=== PATIENT | female | born 1980 | race Caucasian/White ===

== ENCOUNTER 2017-04-29 09:20 | Observation (INO) | payer OTHER ==
[2017-04-29] MEDS ORDERED: ONDANSETRON 4 MG/2 ML VIAL IVP ONE (09:39)
[2017-04-29] MEDS ORDERED: NS 1,000 ML IV ONE ×2 (09:39→10:02)
[2017-04-29] MEDS ORDERED: fentaNYL 100 MCG/2 ML INJ IVP ONE ×3 (10:02→11:59)
[2017-04-29 10:15] LABS: % IMMATURE GRANULYOCYTES 0.2 % (0.0-1.1); ABSOLUTE IMMATURE GRANULOCYTES 0.02 10^3/uL (0.00-0.10); ADD DIFF? NO; ADD MORPH? NO; ADD SCAN? NO; ATYPICAL LYMPHOCYTE FLAG 0 (0-99); FRAGMENT RBC FLAG 0 (0-99); HEMATOCRIT 40.4 % (38.0-47.0); HEMOGLOBIN 13.1 g/dL (12.6-16.3); LEFT SHIFT FLG 0 (0-99); LIPEMIA HEMOLYSIS FLAG 80 (0-99); MEAN CELL HEMOGLOBIN 27.8 pg (27.9-34.1); MEAN CELL HEMOGLOBIN CONCENTR. 32.4 g/dL (32.4-36.7); MEAN CELL VOLUME 85.6 fL (81.5-99.8); MEAN PLATELET VOLUME 10.1 fL (8.7-11.7); PLATELET CLUMPS FLAG 10 (0-99); PLATELET COUNT 252 10^3/uL (150-400); RED BLOOD CELL COUNT 4.72 10^6/uL (4.18-5.33); RED CELL DISTRIBUTION WIDTH 13.1 % (11.5-15.2)
[2017-04-29] MEDS ORDERED: OXYMETAZOLINE 30 ML NASAL SPRAY ONE (10:17)
--- NOTE | 2017-04-29 10:19 | EDPHY ---
H & P Time Seen by Provider: 04/29/17 09:39 HPI/ROS: HPI Vomiting blood, nosebleed. 36-year-old female by private vehicle. This patient reports that 2 weeks ago she was playing softball down in [place]. She was hit by a fly ball directly in the nose and face. She suffered extensive facial fractures and developed a posterior epistasis. Posterior packing was placed with no effect. She was taken to surgery by ENT at [facility]. She reports that on Sunday she had stitches removed from the area of posterior nasal/pharyngeal bleeding. She reports that she felt nauseous this morning and threw up about 300 cc of blood about a half an hour prior to arrival. Since then she has been coughing up blood and vomiting blood that is dripping down from her posterior pharynx. 1 cup of coffee earlier this morning. No food. ROS: Constitutional: No fever, no chills. No weakness. Anxious. Eyes: No discharge. No changes in vision. ENT: No sore throat. As above. Respiratory: No cough. No shortness of breath. Cardiac: No chest pain, no palpitations. Gastrointestinal: Upper abdominal discomfort associated with vomiting, no vomiting, no diarrhea. Genitourinary: No hematuria. No dysuria or increased frequency with urination. Musculoskeletal: No back pain. No neck pain. No myalgias or arthralgias. Skin: No rashes. Neurological: No headache. No focal weakness or altered sensation. Past medical history: Seizure disorder. On Kera now. As above. ENT is Dr. Sands. Social history: Nonsmoker. Here by herself. No alcohol. Physical Exam: General Appearance: Alert, very anxious. This patient is responding to questions appropriately and in full sentences. This patient appears well- hydrated and well-nourished. Eyes: Pupils equal and round no pallor or injection. No lid edema, erythema or injection. ENT, Mouth: Mucous membranes are moist. Blood in the posterior pharynx. The pharyngeal tissues are unremarkable. No edema or swelling. No asymmetry suggestive of abscess. No erythema or exudates. Blood in both nasal canals. Respiratory: There are no retractions, lungs are clear to auscultation with good air movement bilaterally. Cardiovascular: Regular rate and rhythm. No murmur. Gastrointestinal: Abdomen is soft with vague and mild upper abdominal tenderness on palpation, no masses, bowel sounds normal. No focal tenderness at McBurney's point. No Galo sign. Neurological: Motor sensory function is grossly intact. Cranial nerves are normal. Gait is normal. Skin: Warm and dry, no rashes. Musculoskeletal: Neck is supple and nontender. Extremities are symmetrical. All joints range without pain or impingement. Psychiatric: No agitation. No depression. Database: EKG: Imaging: Procedures: Procedure: Emergency department course: IV placed x2. She was placed on a monitor. Appropriate blood work sent. Vital signs reviewed. She was given 4 mg of IV Zofran and 20 mg of IV Pepcid for nausea and vomiting. She will be given 50 mcg doses of IV fentanyl as needed for pain and anxiety. 10:10 a.m., patient moved to resuscitation room 2. Advanced airway equipment to the bedside. She is very anxious. She was given 0.5 mg of IV Ativan for her anxiety. She is not actively hemorrhaging or vomiting at this time. Repeat neurologic Assessment is nonfocal and unchanged from prior. 11:00 a.m., Dr. Monsivais is at the bedside scoping her. She appears much more comfortable. 11:05 a.m., Dr. Monsivais was not able to thoroughly scope her secondary to her pain. He wants to admit her to the hospitalist service and he will closely follow for further observation and operative management as needed. He is not feel she is a candidate for the operating room at this time. 11:20 a.m., spoke to hospitalist. Patient accepted for admission to the hospitalist service under the care of Dr. Peguero. She is comfortable and relaxed at this time. No active hemorrhage. She is talking on her cell phone. She was admitted to the hospitalist service in stable and improved condition. Differential Diagnosis: The differential diagnosis on this patient includes but is not limited to posterior epistaxis, multiple facial fractures, history of facial surgery and posterior nasal bleeding, hematemesis. This represents a partial list of diagnoses considered. These considerations are based on history, physical exam , past history, reassessment and diagnostic testing. Smoking Status: Light smoker Constitutional: Initial Vital Signs Temperature (C) 36.8 C 04/29/17 09:23 Heart Rate 109 H 04/29/17 09:23 Respiratory Rate 16 04/29/17 09:23 Blood Pressure 120/97 H 04/29/17 09:23 O2 Sat (%) 98 04/29/17 09:23 O2 Delivery Mode Room Air Allergies/Adverse Reactions: No Known Allergies Allergy (Unverified 04/29/17 09:26) Home Medications: Medication Instructions Recorded Cyclobenzaprine [Flexeril 10 MG 10 mg PO BID PRN 04/29/17 (*)] Gentamicin 0.3% [Gentak 0.3% Opht 1 drop DAILY 04/29/17 Drops (RX)] LORazepam [Ativan (*)] 0.5 mg PO Q12 PRN 04/29/17 Naproxen Sodium [Aleve 220 MG (*)] 220 mg PO PRN PRN 04/29/17 Nystatin Susp [Mycostatin Oral 5 ml PO QID 04/29/17 Liquid] Sertraline HCl [Zoloft 100mg (*)] 200 mg PO DAILY 04/29/17 levETIRAcetam [Keppra 500 mg (*)] 750 mg PO BID 04/29/17 oxyCODONE IR [Oxycodone Ir (*)] 5 mg PO Q12 PRN 04/29/17 traZODone [traZODONE 50MG (*)] 25 mg PO HS 04/29/17 Medical Decision Making Critical Care Time: I spent a total of 42 minutes of critical care time in obtaining history, performing a physical exam, bedside monitoring of interventions, collecting and interpreting tests and discussion with consultants but not including time spent performing procedures. - Data Points Laboratory Results: Laboratory Results 04/29/17 09:49 04/29/17 09:49 Medications Given: Discontinued Medications Famotidine (Pepcid) 20 mg IVP EDNOW ONE Stop: 04/29/17 11:17 Last Admin: 04/29/17 11:28 Dose: 20 mg Fentanyl (Sublimaze) 50 mcg IVP EDNOW ONE Stop: 04/29/17 10:03 Last Admin: 04/29/17 10:21 Dose: 50 mcg Fentanyl (Sublimaze) 50 mcg IVP EDNOW ONE Stop: 04/29/17 10:28 Last Admin: 04/29/17 10:28 Dose: 50 mcg Fentanyl (Sublimaze) 50 mcg IVP EDNOW ONE Stop: 04/29/17 12:00 Last Admin: 04/29/17 12:01 Dose: 50 mcg Hydromorphone HCl (Dilaudid) 0.2 mg IVP Q2HRS PRN PRN Reason: Pain, Severe Unable to Take PO Stop: 05/09/17 12:11 Last Admin: 04/29/17 16:06 Dose: 0.2 mg Sodium Chloride (Ns) 1,000 mls @ 0 mls/hr IV ONCE ONE PRN Reason: Wide Open Stop: 04/29/17 09:40 Last Admin: 04/29/17 09:47 Dose: 1,000 mls Sodium Chloride (Ns) 1,000 mls @ 0 mls/hr IV ONCE ONE; Wide Open PRN Reason: Protocol Stop: 04/29/17 10:03 Last Admin: 04/29/17 10:33 Dose: 1,000 mls Lorazepam (Ativan Injection) 0.5 mg IVP EDNOW ONE Stop: 04/29/17 10:47 Last Admin: 04/29/17 10:47 Dose: 0.5 mg Ondansetron HCl (Zofran) 4 mg IVP EDNOW ONE Stop: 04/29/17 09:40 Last Admin: 04/29/17 09:47 Dose: 4 mg Oxymetazoline HCl (Afrin Nasal Chama) 1 sprays EACHNARE EDNOW ONE Stop: 04/29/17 10:23 Last Admin: 04/29/17 10:25 Dose: 1 spray Pantoprazole Sodium (Protonix) 40 mg IVP EDNOW ONE Stop: 04/29/17 11:17 Last Admin: 04/29/17 11:28 Dose: 40 mg Departure - Departure Disposition: [facility] Acute Clinical Impression: Hematemesis, Acute posterior epistaxis, History of facial fracture
[2017-04-29] MEDS ORDERED: OXYMETAZOLINE 30 ML NASAL SPRAY EACHNARE ONE (10:22)
[2017-04-29 10:25] LABS: ANION GAP 11 mEq/L (8-16); CALCIUM 9.5 mg/dL (8.5-10.4); CARBON DIOXIDE 15 mEq/l (22-31); CHLORIDE 115 mEq/L (97-110); CREATININE 0.7 mg/dL (0.6-1.0); GLOMERULAR FILTRATION RATE > 60; GLUCOSE 99 mg/dL (70-100); POTASSIUM 4.5 mEq/L (3.5-5.2); SODIUM 141 mEq/L (134-144)
[2017-04-29] MEDS ORDERED: fentaNYL 100 MCG/2 ML INJ ONE (10:27)
[2017-04-29] MEDS ORDERED: LORazepam 2 MG/ML INJ ONE (10:43)
[2017-04-29 10:44] LABS: INR 1.02 (0.83-1.16); PROTIME(PATIENT) 13.3 SEC (12.0-15.0)
[2017-04-29 10:45] LABS: APTT 26.8 SEC (23.0-38.0)
[2017-04-29] MEDS ORDERED: LORazepam 2 MG/ML INJ IVP ONE (10:46)
[2017-04-29] MEDS ORDERED: PANTOPRAZOLE SODIUM 40 MG VIAL IVP ONE (11:16)
[2017-04-29] MEDS ORDERED: ACETAMINOPHEN 325 MG TAB PO PRN (11:16)
[2017-04-29] MEDS ORDERED: LORazepam 0.5 MG TAB PO PRN ×2 (11:16→12:31)
[2017-04-29] MEDS ORDERED: ONDANSETRON DISINTEGRATING 4 MG TAB PO PRN (11:16)
[2017-04-29] MEDS ORDERED: FAMOTIDINE 20 MG/2 ML SDV IVP ONE (11:16)
[2017-04-29 11:45] LABS: ALBUMIN 3.7 g/dL (3.5-5.0); BILIRUBIN,TOTAL 0.5 mg/dL (0.1-1.4); BILIRUBIN-CONJUGATED 0.3 mg/dL (0.0-0.5); BILIRUBIN-UNCONJUGATED 0.2 mg/dL (0.0-1.1); TOTAL PROTEIN 6.8 g/dL (6.3-8.2)
[2017-04-29] MEDS ORDERED: NAPROXEN SODIUM 220 MG TAB PO PRN (12:31)
[2017-04-29] MEDS ORDERED: oxyCODONE IR 5 MG TAB PO PRN (12:31)
[2017-04-29] MEDS ORDERED: CYCLOBENZAPRINE 10 MG TAB PO PRN (12:31)
[2017-04-29] MEDS: PROMETHAZINE HCL 25 MG/ML INJ IVP PRN ×2 (12:39→19:38)
[2017-04-29] MEDS: LORazepam 2 MG/ML INJ IVP PRN ×2 (12:39→16:50)
[2017-04-29] MEDS: HYDROmorphONE/DILAUDID 1 MG/ML SYR IVP PRN ×4 (12:39→19:38)
[2017-04-29] MEDS ORDERED: OXYMETAZOLINE 30 ML NASAL SPRAY EACHNARE PRN (12:52)
--- NOTE | 2017-04-29 14:06 | GHP ---
[f rep st] HISTORY AND PHYSICAL DATE OF ADMISSION: 04/29/2017 CHIEF COMPLAINT: Nosebleed. HISTORY OF PRESENT ILLNESS: The patient is a 36-year-old female who presented to the emergency room today complaining of nosebleed. She tells me that approximately 2 weeks ago she was hit in the fac e by a softball and suffered extensive facial fractures as well as severe epistaxis. She was treate d at [facility] and required surgical intervention from ENT. She had been doing well in the postoperative setting. On Sunday, 2 days ago, the patient's stitches were removed and she appea red to be doing well, with no subsequent bleeding until this morning. She reports that she felt solomon seous this morning when she woke up and subsequently vomited. She was noted to have approximately 3 00 mL of bloody vomit in the emergency room. She tells me that she feels that there was blood dripp ing down the back of her throat, and that she is very sensitive given her recent fracture and trauma . While in the emergency room, she was consulted on by Dr. Navid Monsivais of ENT. She did not appear to actively be bleeding. He was able to complete a partial scope. She denies any chest pain, shortness of breath or dyspnea. She states that she has been in her norm al health, with no other complaints or complications. PAST MEDICAL HISTORY: Seizure disorder, vascular surgery, history of septic shock with organ failur e, chronic pain. PAST SURGICAL HISTORY: Vascular surgery that the patient is unable at this time to elaborate on, ve ntricular shunt placement and removal. REVIEW OF SYSTEMS: A comprehensive 10-point review of systems is negative, other than noted in the HPI. SOCIAL HISTORY: The patient denies any tobacco use. She denies any alcohol. FAMILY HISTORY: Noncontributory at this time. PHYSICAL EXAMINATION: GENERAL: The patient is alert, very anxious, tearful. HEENT: Pupils equal, round, reactive to light. Mucous membranes are moist. There is notable blood in the posterior pha rynx. RESPIRATORY: Lungs are clear to auscultation bilaterally. No rhonchi or wheezes noted. CAR DIOVASCULAR: Regular rate and rhythm. No gallop or murmur appreciated. GASTROINTESTINAL: Abdomin al bowel sounds are positive, soft and nontender. There is no guarding or rigidity noted. NEUROLOG ICAL: The patient is focally intact. SKIN: Warm and dry. No rashes or lesions appreciated. EXTR EMITIES: Within normal limits. There is no clubbing or cyanosis noted. VITAL SIGNS: Afebrile at 36.8, pulse is 98,respiratory rate 16, blood pressure is 120/97, she is saturating 98% on room air. LABORATORY EVALUATION: Laboratory values are within normal limits. ALLERGIES: None. ASSESSMENT AND PLAN: The patient will be admitted to the medical-surgical floor for observation sta tus and assure that her bleeding has completely subsided. Again, she was consulted on in the emerge ncy room by Dr. Navid Monsivais of ENT. He does not feel that she is a candidate for the operating room at this time as she does not have any operable conditions. He will continue to be control system computer scientist and avai lable should the patient's bleeding redevelop. Will continue her previously prescribed home medicat ions and monitor her condition overnight closely in the hospital. She will be provided antiemetics as well as pain medication. We will continue supportive care for her anxiety as well. I have discussed the patient's care with Dr. Lula Hector in the emergency room. Further ac tion will be taken as needed during the patient's hospitalization. /[id number]/MODL
[2017-04-29] MEDS: OXYMETAZOLINE 30 ML NASAL SPRAY EACHNARE SCH ×2 (15:59→21:51)
[2017-04-29] MEDS: NYSTATIN SUSP 500000 UNIT/5 ML UDCUP PO SCH ×2 (15:59→21:49)
[2017-04-29] MEDS ORDERED: NON-FORMULARY NEW DRUG (Nystatin Susp 5 ML) PO SCH (16:00)
[2017-04-29] MEDS: ONDANSETRON 4 MG/2 ML VIAL IVP PRN (16:45)
[2017-04-29 18:18] LABS: % IMMATURE GRANULYOCYTES 0.3 % (0.0-1.1); ABSOLUTE IMMATURE GRANULOCYTES 0.03 10^3/uL (0.00-0.10); ADD DIFF? NO; ADD MORPH? NO; ADD SCAN? NO; ATYPICAL LYMPHOCYTE FLAG 10 (0-99); FRAGMENT RBC FLAG 0 (0-99); HEMATOCRIT 35.5 % (38.0-47.0); HEMOGLOBIN 11.5 g/dL (12.6-16.3); LEFT SHIFT FLG 0 (0-99); LIPEMIA HEMOLYSIS FLAG 80 (0-99); MEAN CELL HEMOGLOBIN 28.3 pg (27.9-34.1); MEAN CELL HEMOGLOBIN CONCENTR. 32.4 g/dL (32.4-36.7); MEAN CELL VOLUME 87.4 fL (81.5-99.8); PLATELET CLUMPS FLAG 10 (0-99); PLATELET COUNT 213 10^3/uL (150-400); RED BLOOD CELL COUNT 4.06 10^6/uL (4.18-5.33); RED CELL DISTRIBUTION WIDTH 13.2 % (11.5-15.2)
--- NOTE | 2017-04-29 20:07 | GCON ---
[f rep st] CONSULTATION ENT CONSULTATION CHIEF COMPLAINT: Epistaxis. HISTORY OF PRESENT ILLNESS: A 36-year-old female with recurrent epistaxis and a history of facial t rauma with surgical repair approximately 2 weeks ago. The nature of the surgical repair is unknown to the patient, though she knows she had fractures of her face that were repaired in the operating r oom by an ENT in [place]. Attempts are being made to obtain these records and operative reports. Mariia espino presents today to the ER with significant nasal bleeding overnight. She states that she had stitc hes removed in her posterior nasopharynx on this last Sunday. She awoke this morning with an upset stomach and had emesis of bright red and dark blood. At that time, she also had bleeding coming fro m her nose. She is not sure which side. She came to the emergency department and was found to be g enerally stable although in some distress with abdominal pain, and some intermittent epistaxis with blood going down the back of her throat as well. I was brought in on consultation by Dr. Peguero. REVIEW OF SYSTEMS: Negative but for sinonasal and stomach complaints as noted above. PAST MEDICAL HISTORY: Seizure disorder, on Keppra. SOCIAL HISTORY: Nonsmoker. Denies alcohol. PHYSICAL EXAM: VITAL SIGNS: Blood pressure is 129/103, heart rate is 94, respiratory rate 16, satu rations 97% on room air. GENERAL: Alert, interactive, mild distress. HEAD AND FACE: Normocephali c, largely atraumatic but for some mild periorbital ecchymoses bilaterally. Ears: Bilateral pinnae and canals are nontender and nonerythematous, with no evidence of drainage. Eyes: EOMI. Nose: E xternal nose appears normally formed and generally straight. Anterior rhinoscopy shows some dried b lood around the bilateral nasal vestibules. No active bleeding. Anterior rhinoscopy shows normal s eptal and turbinate anatomy with some evidence of posterior crusting. Oral cavity/oropharynx: Age- appropriate dentition. No gingival, buccal or other mucosal masses or lesions. Symmetric palate el evation. No active bleeding or old blood at the posterior pharynx. NECK: Supple without palpable mass or adenopathy. NEURO: Cranial nerves 2-12 are grossly intact. PROCEDURE: After verbal informed consent and placement of Afrin and lidocaine nasal spray in bilate ral nasal cavities, bilateral rigid video nasal endoscopy was performed. Right nostril showed no ev idence of active bleeding. No significant clotting. Some evidence of healing excoriation at the in ferior turbinate and middle meatus. Nasopharynx was clear. The left nasal cavity was unremarkable, without any evidence of bleeding or clots. Two sutures appeared along the mid septum. These appea red to be dissolvable. Septal and turbinate anatomy otherwise unremarkable. INTERVAL ASSESSMENT: A 36-year-old female, 2 weeks status post nasal/facial surgery with intermitte nt epistaxis today. No active bleeding at this point. Recommended continued observation. FINAL ED ASSESSMENT: The patient was visited about 2 hours after initial consultation for concern o f left-sided epistaxis and spitting up of fresh blood. The patient was again scoped with no active bleeding found. Afrin nasal spray was placed. Again, this is a 36-year-old female with intermittent epistaxis following recent nasal and facial breaux rgery. This last episode appeared quite mild. I discussed the case with the ED attending, Dr. David rubin. We agreed that the patient should be observed overnight. I recommended Afrin nasal spray to bi lateral nares 3 times daily. As well, p.r.n. Afrin for active nasal bleeds. Recommend she keep hea d of bed upright or at least above 45 degrees. With active bleeding, she should lean forward so as not to be swallowing blood. Nasal clamp should be applied. We will continue to follow her as an in patient and recommended having Hospitalist call me for any bleeding. I appreciate Hospitalist's car e for pain and GI complaints. Thank you. Should you have any questions, please call my cell phone at [phone]. /[id number]/MODL
[2017-04-29] MEDS ORDERED: traZODone 50 MG TAB PO SCH (21:00)
[2017-04-29] MEDS: levETIRAcetam 500 MG TAB PO SCH (21:49)
[2017-04-30] MEDS: HYDROmorphONE/DILAUDID 1 MG/ML SYR IVP PRN ×5 (00:48→15:10)
[2017-04-30] MEDS: ONDANSETRON 4 MG/2 ML VIAL IVP PRN ×2 (00:48→06:38)
[2017-04-30] MEDS: PROMETHAZINE HCL 25 MG/ML INJ IVP PRN (03:17)
[2017-04-30 05:01] LABS: % IMMATURE GRANULYOCYTES 0.3 % (0.0-1.1); ABSOLUTE IMMATURE GRANULOCYTES 0.02 10^3/uL (0.00-0.10); ADD DIFF? NO; ADD MORPH? NO; ADD SCAN? NO; ATYPICAL LYMPHOCYTE FLAG 10 (0-99); FRAGMENT RBC FLAG 20 (0-99); HEMATOCRIT 36.7 % (38.0-47.0); HEMOGLOBIN 11.7 g/dL (12.6-16.3); LEFT SHIFT FLG 0 (0-99); LIPEMIA HEMOLYSIS FLAG 80 (0-99); MEAN CELL HEMOGLOBIN 28.2 pg (27.9-34.1); MEAN CELL HEMOGLOBIN CONCENTR. 31.9 g/dL (32.4-36.7); MEAN CELL VOLUME 88.4 fL (81.5-99.8); MEAN PLATELET VOLUME 9.7 fL (8.7-11.7); PLATELET CLUMPS FLAG 10 (0-99); PLATELET COUNT 223 10^3/uL (150-400); RED BLOOD CELL COUNT 4.15 10^6/uL (4.18-5.33); RED CELL DISTRIBUTION WIDTH 13.2 % (11.5-15.2)
[2017-04-30] MEDS: NYSTATIN SUSP 500000 UNIT/5 ML UDCUP PO SCH ×3 (06:03→16:35)
--- NOTE | 2017-04-30 07:46 | SOAPPROG ---
SOAP Progress Note Assessment/Plan: Assessment: 36 yo with recurrent epistaxis. Crit dropping. Plan: Recommended OR for exploration of sinonasal cavities and control of epistaxis. Patient agrees. 04/30/17 07:46 Subjective: Another bleed in ER yesterday and another at 0300 last night. Predominantly left. Complaint of GI pain and diarrhea. Objective: Vital Signs Temp Pulse Resp BP Pulse Ox 36.9 C 79 16 117/85 H 95 04/30/17 03:42 04/30/17 03:42 04/30/17 03:42 04/30/17 03:42 04/30/17 03:42 Laboratory Results 04/30/17 04:50 04/29/17 04/30/17 05/01/17 05:59 05:59 05:59 Intake Total 2700 Output Total 1550 Balance 1150 PT 13.3 SEC (12.0-15.0) 04/29/17 09:49 INR 1.02 (0.83-1.16) 04/29/17 09:49 Physical Exam - Physical Exam General Appearance: alert, no apparent distress EENT: PERRL/EOMI, pharynx normal (No posterior pharynx blood.), other (Old bloody crust at nose. No active bleeding.), No purulent nasal drainage Neck: normal inspection Skin: normal color, warm/dry Neuro/Psych: alert, normal mood/affect ICD10 Worksheet Patient Problems: Problems Problem Status Onset Acute posterior epistaxis Acute Hematemesis Acute History of facial fracture Acute
[2017-04-30] MEDS: levETIRAcetam 500 MG TAB PO SCH (08:07)
[2017-04-30] MEDS: OXYMETAZOLINE 30 ML NASAL SPRAY EACHNARE SCH ×2 (08:22→16:34)
[2017-04-30] MEDS ORDERED: LIDO/EPI 1% **Not for Epidural 20 ML MDV ONE ×2 (08:55→11:24)
[2017-04-30] MEDS ORDERED: GENTAMICIN 0.3% 3.5 GM OPHT.OINT EACHEYE SCH (09:00)
[2017-04-30] MEDS ORDERED: SERTRALINE HCL 100 MG TAB PO SCH (09:00)
[2017-04-30] MEDS ORDERED: GENTAMICIN 0.3% OPHT DROPS 5ML EACHEYE SCH (09:00)
[2017-04-30] MEDS ORDERED: MIDAZOLAM 2 MG/2 ML VIAL IVP ONE (11:21)
--- NOTE | 2017-04-30 11:21 | PDANEPAE ---
ANE History of Present Illness 36 yo for control of nasal bleeder ANE Past Medical History - Cardiovascular History Hx Hypertension: No Hx Arrhythmias: No Hx Chest Pain: No Hx Coronary Artery / Peripheral Vascular Disease: No Hx CHF / Valvular Disease: No Hx Palpitations: No - Pulmonary History Hx COPD: No Hx Asthma/Reactive Airway Disease: Yes Hx Recent Upper Respiratory Infection: No Hx Oxygen in Use at Home: No Hx Sleep Apnea: No Sleep Apnea Screening Result - Last Documented: Negative - Neurologic History Hx Cerebrovascular Accident: No Hx Seizures: Yes - Endocrine History Hx Diabetes: No - Renal History Hx Renal Disorders: Yes Renal History Comment: on HD til 2013 ANE Review of Systems Review of systems is: negative - Exercise capacity METS (RN): 4 METS ANE Patient History - Allergies Allergies/Adverse Reactions: ibuprofen Allergy (Severe, Verified 04/30/17 11:17) Anaphylaxis haloperidol [From Haldol] Allergy (Mild, Verified 04/30/17 11:17) latex Allergy (Verified 04/30/17 11:17) Rash Penicillins Allergy (Verified 04/30/17 11:17) Anaphylaxis - Home Medications Home medications: home medication list seen and reviewed Home Medications: Cyclobenzaprine [Flexeril 10 MG (*)] 10 mg PO BID PRN 04/29/17 [Last Taken Unknown] Gentamicin 0.3% [Gentak 0.3% Opht Drops (RX)] 1 drop DAILY 04/29/17 [Last Taken Unknown] LORazepam [Ativan (*)] 0.5 mg PO Q12 PRN 04/29/17 [Last Taken Unknown] Naproxen Sodium [Aleve 220 MG (*)] 220 mg PO PRN PRN 04/29/17 [Last Taken Unknown] Nystatin Susp [Mycostatin Oral Liquid] 5 ml PO QID 04/29/17 [Last Taken Unknown] Sertraline HCl [Zoloft 100mg (*)] 200 mg PO DAILY 04/29/17 [Last Taken Unknown] levETIRAcetam [Keppra 500 mg (*)] 750 mg PO BID 04/29/17 [Last Taken Unknown] oxyCODONE IR [Oxycodone Ir (*)] 5 mg PO Q12 PRN 04/29/17 [Last Taken Unknown] traZODone [traZODONE 50MG (*)] 25 mg PO HS 04/29/17 [Last Taken Unknown] - NPO status NPO Since - Liquids (Date): 04/30/17 NPO Since - Liquids (Time): 00:00 NPO Since - Solids (Date): 04/30/17 NPO Since - Solids (Time): 00:00 - Smoking Hx Smoking Status: Light smoker ANE Labs/Vital Signs - Labs Result Diagrams: 04/30/17 04:50 04/29/17 09:49 - Vital Signs Blood Pressure: 124/91 Heart Rate: 88 Respiratory Rate: 16 O2 Sat (%): 90 Height: 5 ft 9 in Weight: 95.254 kg ANE Physical Exam - Airway Neck exam: FROM Mallampati Score: Class 2 Mouth exam: dentures - Pulmonary Pulmonary: no respiratory distress - Cardiovascular Cardiovascular: regular rate and rhythym - ASA Status ASA Status: II ANE Anesthesia Plan Anesthesia Plan: general endotracheal anesthesia
[2017-04-30] MEDS ORDERED: BUPIVACAINE/EPI 0.25% 30 ML SDV ONE (11:25)
[2017-04-30] MEDS ORDERED: REMIFENTANIL HCL 1 MG VIAL ONE (11:35)
[2017-04-30] MEDS ORDERED: PROPOFOL/EMULSION 500 MG/50 ML BOTTLE IV ONE (11:36)
[2017-04-30] MEDS ORDERED: ONDANSETRON 4 MG/2 ML VIAL ONE (11:36)
[2017-04-30] MEDS ORDERED: ROCURONIUM 50 MG/5 ML VIAL ONE (11:36)
[2017-04-30] MEDS ORDERED: METOCLOPRAMIDE 10 MG/2 ML VIAL ONE (11:36)
[2017-04-30] MEDS ORDERED: DEXAMETHASONE 4 MG/ML VIAL ONE (11:36)
[2017-04-30] MEDS ORDERED: fentaNYL 100 MCG/2 ML INJ ONE ×4 (11:36→14:21)
--- NOTE | 2017-04-30 13:20 | POSTOPPROG ---
Post Op Note Date of Operation: 04/30/17 Surgeon: Navid Monsivais Anesthesiologist: Gabe Anesthesia: GET(General Endotracheal) Pre-op Diagnosis: Left recurrent epistaxis Post-op Diagnosis: Left recurrent epistaxis Indication: Left recurrent epistaxis Procedure: L max antrostomy, L sphenopalatine artery ligation, L post inf turbinectomy Findings: L blood ooze Inf/Abcess present in the surg proc area at time of surgery?: No Depth: Deep Incisional (Fascial) EBL: Minimal Complications: none Specimen(s): none
[2017-04-30] MEDS: fentaNYL 100 MCG/2 ML INJ IVP PRN ×5 (13:26→14:23)
[2017-04-30] MEDS ORDERED: PROMETHAZINE HCL 25 MG/ML INJ IVP PRN (13:31)
[2017-04-30] MEDS ORDERED: NALOXONE HCL 0.4 MG/ML INJ IVP PRN (13:31)
[2017-04-30] MEDS ORDERED: fentaNYL 100 MCG/2 ML INJ IVP PRN (13:31)
--- NOTE | 2017-04-30 13:33 | POSTANESTH ---
Post Anesthetic Evaluation Cardiovascular Status: Normal, Stable Respiratory Status: Normal, Stable Level of Consciousness/Mental Status: Can Participate in Eval Pain Control: Adequate, Prn Tx Ordered Nausea/Vomiting Control: Adequate, Prn Tx Ordered Complications Possibly Related to Anesthesia: None Noted
[2017-04-30] MEDS ORDERED: HYDROmorphONE/DILAUDID 1 MG/ML SYR ONE (13:44)
--- NOTE | 2017-04-30 16:47 | HOSPPROG ---
Hospitalist Progress Note Assessment/Plan: DIAGNOSES: -EPISTAXIS -RECENT FACIAL INJURY W FRACTURES, S/P SURGERY ELSEWHERE PLANS: she is now stable post op but will need further monitoring for any more bleeding , will need to change to inpatient to monitor overnight will repeat Hb SUBJECTIVE: states she feels better, some irritation in nose post op, a few drops of blood so far post op but no major bleeding no sob no fever sxs OBJECTIVE: vitals: stable exam: alert oriented relaxed, talkative skin warm dry resps relaxed lungs clear heart reg no visible bleeding good cap refill repeat Hg 11 ADDENDUM TO ABOVE: we have obtained records from outside hospital where she had her facial surgery. She was there under a different name than the name she uses here, and there were some issues in how she interacted with staff there. We believe the name she has given us here is her correct name. She has so far here had reasonably appropriate interactions with staff, though has said some odd/inappropriate things to them. 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 There was concern about pain med seeking behaviors at other hospital but we have not seen that here so far. Objective: Vital Signs Temp Pulse Resp BP Pulse Ox 37 C 91 14 128/87 H 90 L 04/30/17 15:53 04/30/17 15:53 04/30/17 15:53 04/30/17 15:53 04/30/17 15:53 Laboratory Results 04/30/17 04:50 04/29/17 04/30/17 05/01/17 06:59 06:59 06:59 Intake Total 2700 530 Output Total 1550 50 Balance 1150 480 PT 13.3 SEC (12.0-15.0) 04/29/17 09:49 INR 1.02 (0.83-1.16) 04/29/17 09:49 ICD10 Worksheet Patient Problems: Problems Problem Status Onset Acute posterior epistaxis Acute Hematemesis Acute History of facial fracture Acute
[2017-04-30 16:51] VITALS: BP 110/69; PULSE 85; RESP 18; TEMP 99; O2SAT 91
--- NOTE | 2017-04-30 20:35 | GOP ---
[f rep st] OPERATIVE REPORT DATE OF OPERATION: SURGEON: Navid Monsivais MD ANESTHESIA: General. PREOPERATIVE DIAGNOSIS: Recurrent left epistaxis, status post reconstruction of facial trauma. POSTOPERATIVE DIAGNOSIS: Recurrent left epistaxis, status post reconstruction of facial trauma. PROCEDURE PERFORMED: Left maxillary antrostomy, left sphenopalatine artery ligation, left septal ca uterization. FINDINGS: Right nasal septal ooze at Kiesselbach's plexus. Left inferior turbinate ooze with blood along the nasal floor and middle meatus. SPECIMENS: None. ESTIMATED BLOOD LOSS: 10 mL. INDICATIONS: The patient was 1st seen in the emergency department on 04/29/2017 in consultation for recurrent epistaxis. She had a history of nasal facial reconstruction following facial trauma abou t 2 weeks ago. She came to the ER with facial pain and recurrent bleeding. She was observed overni ght and continued to have witnessed bleeds from the left nasal cavity. These were somewhat short bu t recurrent. Further, she had a drop in her H and H. Given her history and findings, she was deter mined to be an appropriate candidate for the above-stated procedures. The risks, benefits, and alte rnatives to the procedures were explained at length to the patient, who stated she understood and wi shed to go forward with the procedures. DESCRIPTION OF PROCEDURE: The patient was brought to the operating room by Anesthesiology and place d on the operating table. Once appropriate level of anesthesia was achieved, the patient was preppe d and draped in the usual fashion. The nasal septum, middle turbinates and maxillary line were inje cted with 1% lidocaine with 100,000 epinephrine bilaterally. Afrin-soaked pledgets were placed bila terally. The Afrin was given time to take effect, while surgical equipment was prepared. The right nasal cavity was explored 1st with a 0-degree video endoscope. The Afrin-soaked pledgets were removed from that side. There was bloody ooze from Kiesselbach's area. This was mildly cauter ized with Bovie suction electrocautery. This appeared to control the bleeding. The right inferior turbinate was somewhat lateralized with a Baker in order to allow visualization of the rest of the n marcel cavity. There was some mild bleeding from excoriated portion of the right inferior turbinate. This was cauterized as well. Afrin-soaked pledgets were replaced in that nasal cavity. The ones on the left were removed. The 0-degree video endoscope was used to visualize the left nasa l cavity. The posterior and mid inferior turbinates were excoriated but appeared to be healing. No active bleeding from there. There was some mild ooze within the middle meatus. The middle turbina te was lateralized with a Baker in order to create better visualization of middle meatus. Questiona ble ooze from beneath the inferior turbinate posteriorly at the region of the Ifeoma ethmoidalis. A s well, there was some mild old blood visualized emanating from the posterior aspect of the uncinate process. Given the sizable bloody ooze and her history, she was determined to be appropriate for m axillary antrostomy to visualize structures within the maxillary sinus and address possible bleeding that may have been the result of prior facial fractures. As well, maxillary antrostomy will furthe r facilitate sphenopalatine artery ligation. The Baker elevator was used to incise the uncinate pro cess. The uncinectomy was completed with a straight going-through cut. A ball probe was used to pa lpate the maxillary antrum. This was found readily. A combination of backbiter and straight going- through cut was used to widely open the maxillary antrum. There was some mild bloody ooze at fringe s of this and posteriorly in the region of the Ifeoma ethmoidalis. Given difficulty with visualizat ion of the Ifeoma ethmoidalis, the excoriated posterior portion of the left inferior turbinate was r esected. The base of this was cauterized. No significant blood or bleeding from within the maxilla ry sinus. The margins of the antrostomy superiorly and inferiorly and anteriorly were cauterized wi th mild Bovie suction electrocautery. The mucosa medial to the maxillary wall to the Ifeoma ethmoid melly was elevated with a suction Baker elevator. There was diffuse bleeding emanating from this reg ion. The sphenopalatine artery was found and dissected free with a combination of suction Baker and a ball probe. Once the artery was isolated, a Rhinoforce clip production team manager was used to place a single m etallic Ligaclip. There was no further bloody ooze at the site. Keyhole bipolar forceps was then u sed to cauterize the site as well. No evidence of bleeding or ooze at the site following this. After the right nasal pledgets were removed, bilateral nasal cavities were irrigated with copious no rmal saline. Bilateral nasal cavities were reinspected for bleeding. No significant bleeding was s een, yet, there was some continuous mild ooze at the surgical beds. A hemostatic agent was blown in place to bilateral nasal cavities, and this was focused at the sites of surgical intervention. No active bleeding seen following this. The patient tolerated the procedure well, and was extubated in the operating room prior to being transferred in good condition to the postanesthesia care unit. COMPLICATIONS: None. /[id number]/MODL
--- NOTE | 2017-04-30 20:55 | PDDCSUM ---
Discharge Summary Discharge Summary: The patient left AMA without waiting for discharge instructions or other conversation with physician. She appeared stable by assessment of her nurse.
== END 2017-04-30 17:31 | disposition left against medical advice (07) ==
LOC: F3E 12:21
PROVIDERS: ADMIT Internal Medicine; ATTEND Internal Medicine
PROC: 09QX4ZZ Repair Left Sphenoid Sinus, Percutaneous Endoscopic Approach (ICD-10-PCS; principal; 2017-04-29)
PROC: 09CR4ZZ Extirpation of Matter from Left Maxillary Sinus, Percutaneous Endoscopic Approach (ICD-10-PCS; principal; 2017-04-29)
PROC: 3E0337Z Introduction of Electrolytic and Water Balance Substance into Peripheral Vein, Percutaneous Approach (ICD-10-PCS; 2017-04-29)
PROC: 095L4ZZ Destruction of Nasal Turbinate, Percutaneous Endoscopic Approach (ICD-10-PCS; 2017-04-29)
DX: R04.0 Epistaxis (principal); K92.0 Hematemesis; E86.9 Volume depletion, unspecified; S02.92XD Unspecified fracture of facial bones, subsequent encounter for fracture with routine healing; Y93.64 Activity, baseball; W21.03XD Struck by baseball, subsequent encounter; Z98.890 Other specified postprocedural states
CPT/HCPCS: 30130; 31256; 31291; 96361; 96374; 96375; 99291; J1100; J1170; J2060; J2250; J2405; J2550; J2704; J2765; J3010

== ENCOUNTER 2017-05-04 14:51 | Emergency (ER) | payer OTHER ==
[2017-05-04] MEDS ORDERED: OXYMETAZOLINE 30 ML NASAL SPRAY ONE ×2 (15:01→17:12)
[2017-05-04] MEDS ORDERED: OXYMETAZOLINE 30 ML NASAL SPRAY EACHNARE ONE (15:02)
[2017-05-04] MEDS ORDERED: ONDANSETRON 4 MG/2 ML VIAL ONE (15:25)
[2017-05-04] MEDS ORDERED: ONDANSETRON 4 MG/2 ML VIAL IVP ONE ×2 (15:27→16:46)
[2017-05-04] MEDS ORDERED: NS 1,000 ML IV ONE (15:27)
[2017-05-04] MEDS ORDERED: DIAZEPAM 10 MG/2 ML SYR ONE (15:28)
[2017-05-04] MEDS ORDERED: DIAZEPAM 10 MG/2 ML SYR IVP ONE (15:30)
--- NOTE | 2017-05-04 15:31 | EDPHY ---
H & P Time Seen by Provider: 05/04/17 14:57 HPI/ROS: HPI Nosebleed. 36-year-old female by private vehicle with her mother. I took care of this patient approximately 1 5 days ago ago at the [facility] Emergency Department. She had underwent facial surgery for multiple facial fractures that were inflicted from a softball hitting her in the face while playing a softball game. Her ENT physician at [facility] in [place] was a Dr. Sands. She was seen in the emergency department at [facility] myself for spontaneous bleeding from both nasal canals. Dr. Monsivais of the ENT service consulted in the emergency department and help with her management. She was admitted to the hospitalist service and Dr. Monsivais. She was taken to the OR by Dr. Monsivais for cauterized procedures. Please see my note from that date for further details. The patient reports that at approximately 9:30 a.m., she sneezed and started bleeding profusely from the right nasal canal. She reports that this continued since that time. She also complains of abdominal discomfort which was identical to her presentation when I saw her on April 29. She reports that her mother came home came up to her bedroom and she had apparently lost consciousness. She is not sure she had a seizure but there was no urinary incontinence and this usually occurs when she has a seizure. She called the office of Dr. Monsivais after her mother aroused her was told to come to the emergency department. She came to the [facility] because she thought it was closer. Currently she feels anxious. She reports that her bleeding has decreased. She denies any lightheadedness. She tells me that Dr. Monsivais told her he may have to cauterize the right posterior nasal cavity but he did not do this during his initial management on April 29. ROS: Constitutional: No fever, no chills. No weakness. Eyes: No discharge. No changes in vision. ENT: No sore throat. No nasal congestion or rhinorrhea. As above. Respiratory: No cough. No shortness of breath. Cardiac: No chest pain, no palpitations. Gastrointestinal: As above, no diarrhea. Genitourinary: No hematuria. No dysuria or increased frequency with urination. Musculoskeletal: No back pain. No neck pain. No myalgias or arthralgias. Skin: No rashes. Neurological: No headache. No focal weakness or altered sensation. Past medical history: Chronic pain, as above, seizure disorder, history of septic shock and organ failure, vascular surgery which she cannot go into detail with. Social history: Is . Was stain with her mother today. Nonsmoker. Here by herself. Physical Exam: General Appearance: Alert, very anxious and emotionally labile. She has a basin of diluted blood on her lap. This patient is responding to questions appropriately and in full sentences. This patient appears well-hydrated and well-nourished. Eyes: Pupils equal and round no pallor or injection. No lid edema, erythema or injection. ENT, Mouth: Mucous membranes are moist. Blood in the posterior pharynx. The pharyngeal tissues are otherwise unremarkable. No edema or swelling. No asymmetry suggestive of abscess. No erythema or exudates. Bleeding from the posterior aspect of the right nasal canal on initial speculum exam. Moderate. Nonpulsatile. Respiratory: There are no retractions, lungs are clear to auscultation with good air movement bilaterally. Cardiovascular: Regular rate and rhythm. No murmur. Gastrointestinal: Abdomen is soft vague tenderness on palpation throughout, no masses, bowel sounds normal. No focal tenderness at McBurney's point. No Galo sign. Neurological: Motor sensory function is grossly intact. Cranial nerves are normal. Gait is normal. Skin: Warm and dry, no rashes. Musculoskeletal: Neck is supple and nontender. Extremities are symmetrical. All joints range without pain or impingement. Psychiatric: No agitation. No depression. As above. Database: EKG: Imaging: Procedures: Emergency department course: Vital signs reviewed. Tachycardic, tachypneic, hypertensive. Patient placed on a monitor. She was moved from room 7 to room 1. I placed a large cotton pledget soaked in Afrin and topical lidocaine and held pressure. Epistaxis was controlled with this. I was reluctant to place a rhino rocket device secondary to her history of facial fractures. The nursing staff was not able to get sufficient IV access. I placed a temporary 18 gauge catheter in her right internal jugular vein, under sterile conditions and under ultrasound guidance. 3:15 p.m., secondary to anxiety she was given 5 mg of IV Valium. She was also complaining of the same abdominal pain as she had the last time I saw her. I do not feel this surgical in nature. She was given 50 mcg of IV fentanyl for this. 320 p.m., spoke with the ENT physician Dr. Cleveland. She is familiar with this patient. She will see this patient on arrival to the [facility] Emergency Department. 3:25 p.m., spoke with Dr. Prudencio Daniels attending emergency physician at [facility] emergency department. The case was discussed in detail with him. He accepts this patient for transfer and will see this patient on arrival. He will contact ENT, Dr. Cleveland when she arrives. 3:45 p.m., the ambulance has arrived. She is stable. She is relaxed and comfortable. No active nasal hemorrhage at this time. She was transferred to the [facility] Emergency Department in stable condition. Differential Diagnosis: The differential diagnosis on this patient includes but is not limited to posterior verses anterior epistaxis, history of multiple facial fractures and posterior epistaxis recently. This represents a partial list of diagnoses considered. These considerations are based on history, physical exam, past history, reassessment and diagnostic testing. Smoking Status: Light smoker Constitutional: Initial Vital Signs Temperature (C) 37.2 C 05/04/17 15:00 Heart Rate 112 H 05/04/17 15:00 Respiratory Rate 22 H 05/04/17 15:00 Blood Pressure 148/113 H 05/04/17 15:00 O2 Sat (%) 99 05/04/17 15:00 O2 Delivery Mode Oxymizer O2 (L/minute) 10 Allergies/Adverse Reactions: ibuprofen Allergy (Severe, Verified 05/04/17 15:12) Anaphylaxis haloperidol [From Haldol] Allergy (Verified 05/04/17 15:12) latex Allergy (Verified 05/04/17 15:12) Rash Penicillins Allergy (Verified 05/04/17 15:12) Anaphylaxis Home Medications: Medication Instructions Recorded Cyclobenzaprine [Flexeril 10 MG 10 mg PO BID PRN 04/29/17 (*)] Gentamicin 0.3% [Gentak 0.3% Opht 1 drop DAILY 04/29/17 Drops (RX)] LORazepam [Ativan (*)] 0.5 mg PO Q12 PRN 04/29/17 Naproxen Sodium [Aleve 220 MG (*)] 220 mg PO PRN PRN 04/29/17 Nystatin Susp [Mycostatin Oral 5 ml PO QID 04/29/17 Liquid] Sertraline HCl [Zoloft 100mg (*)] 200 mg PO DAILY 04/29/17 levETIRAcetam [Keppra 500 mg (*)] 750 mg PO BID 04/29/17 oxyCODONE IR [Oxycodone Ir (*)] 5 mg PO Q12 PRN 04/29/17 traZODone [traZODONE 50MG (*)] 25 mg PO HS 04/29/17 Medical Decision Making - Data Points Medications Given: Discontinued Medications Diazepam (Valium Injection) 5 mg IVP EDNOW ONE Stop: 05/04/17 15:31 Last Admin: 05/04/17 15:33 Dose: 5 mg Fentanyl (Sublimaze) 50 mcg IVP EDNOW ONE Stop: 05/04/17 15:40 Last Admin: 05/04/17 15:41 Dose: 50 mcg Fentanyl (Sublimaze) 100 mcg IVP EDNOW ONE Stop: 05/04/17 16:47 Last Admin: 05/04/17 16:50 Dose: 100 mcg Sodium Chloride (Ns) 1,000 mls @ 0 mls/hr IV ONCE ONE PRN Reason: Wide Open Stop: 05/04/17 15:28 Last Admin: 05/04/17 15:28 Dose: 1,000 mls Ketamine HCl (Ketamine) 20 mg IVP EDNOW ONE Stop: 05/04/17 16:47 Last Admin: 05/04/17 16:55 Dose: 20 mg Ketamine HCl (Ketamine) 20 mg IVP EDNOW ONE Stop: 05/04/17 17:13 Last Admin: 05/04/17 17:12 Dose: 20 mg Ondansetron HCl (Zofran) 4 mg IVP EDNOW ONE Stop: 05/04/17 15:28 Last Admin: 05/04/17 15:29 Dose: 4 mg Ondansetron HCl (Zofran) 4 mg IVP EDNOW ONE Stop: 05/04/17 16:47 Last Admin: 05/04/17 16:55 Dose: 4 mg Oxymetazoline HCl (Afrin Nasal [place]) 2 sprays EACHNARE EDNOW ONE Stop: 05/04/17 15:03 Last Admin: 05/04/17 16:12 Dose: Not Given Departure - Departure Disposition: Home, Routine, Self-Care Clinical Impression: Epistaxis Condition: Fair Instructions: Nosebleed (ED) Referrals: Mariela Cleveland MD [Medical Doctor] - 05/07/17
[2017-05-04] MEDS ORDERED: fentaNYL 100 MCG/2 ML INJ IVP ONE ×2 (15:39→16:46)
[2017-05-04] MEDS ORDERED: fentaNYL 100 MCG/2 ML INJ ONE (15:40)
[2017-05-04] MEDS ORDERED: KETAMINE 100 MG/10 ML SYR IVP ONE ×2 (16:46→17:12)
--- NOTE | 2017-05-04 16:46 | EDPHY ---
H & P Time Seen by Provider: 05/04/17 14:57 HPI/ROS: CHIEF COMPLAINT: Nosebleed abdominal pain HISTORY OF PRESENT ILLNESS: Patient was transferred [facility] for ENT consultation. Her primary complaint now is abdominal pain and feels "full of blood like it is going to explode." Patient was admitted on April 29 of this year for nose bleed after surgery for facial fractures. Surgery was approximately 2 weeks ago at [facility]. Consultation by ENT Dr. Navid Monsivais. She presents to [facility] initially today with epistaxis. She was transferred here for evaluation by Dr. Cleveland from ENT. REVIEW OF SYSTEMS: Eye: no change in vision ENT: Nose bleeding as noted above. Cardiac: no chest pain or syncope Pulmonary: Not short of breath Abdomen: HPI Musculoskeletal: no back pain Skin: No bruising or petechiae Neuro: no headache Constitutional: no fever : no urinary symptoms A comprehensive 10 point review of systems is otherwise negative aside from elements mentioned in the history of present illness. PAST MEDICAL HISTORY: Seizure disorder. Sphenopalatine artery ligation, anxiety. Social history: Accompanied by her mother. Nonsmoker. General Appearance: Alert and conversant, cooperative. Eyes: No scleral icterus. ENT, Mouth: Patient had nasal packing in place on arrival. Respiratory: Normal respiratory effort, breath sounds equal, lungs are clear to auscultation. Cardiovascular: Regular rate and rhythm. Gastrointestinal: Abdomen is soft and non tender. Neurological: Alert and oriented x3. Normally conversant. Face symmetric, normal movement and sensation in all extremities. Skin: Warm and dry, no rashes. Musculoskeletal: No peripheral edema and no joint swelling. Psychiatric: Moderately anxious. Emergency Department course/MDM: Patient was given 40 mg IV ketamine and 100 mcg IV fentanyl for pain related to nasal packing and instrumentation; did not get procedural sedation. Nasal packing was performed by Dr. Cleveland from ENT. 1800: Feels more comfortable, no further nose bleeding, abdominal pain is gone. She does have facial pain and nasal pain wants to try and go home. She says her penicillin allergy does not affect her ability to take cephalosporins and she says that "Keflex works well for me." Discharge with Keflex per Dr. Cleveland from ENTs recommendation. Oxycodone 7. I- STAT hemoglobin and hematocrit are 13 and 39. I think severe blood loss is unlikely. I think it is most likely that her abdominal pain was from swallowing blood. I think it is unlikely she has acute surgical abdominal process. Patient does not want to be admitted. She wants to go home, which I think is reasonable and the rn lactation consultant agrees. HR decreased to less than 100 , still consistent with anxiety. Smoking Status: Light smoker Constitutional: Initial Vital Signs Temperature (C) 37.2 C 05/04/17 15:00 Heart Rate 112 H 05/04/17 15:00 Respiratory Rate 22 H 05/04/17 15:00 Blood Pressure 148/113 H 05/04/17 15:00 O2 Sat (%) 99 05/04/17 15:00 O2 Delivery Mode Room Air O2 (L/minute) 10 Allergies/Adverse Reactions: ibuprofen Allergy (Severe, Verified 05/04/17 15:12) Anaphylaxis haloperidol [From Haldol] Allergy (Verified 05/04/17 15:12) latex Allergy (Verified 05/04/17 15:12) Rash Penicillins Allergy (Verified 05/04/17 15:12) Anaphylaxis Home Medications: Medication Instructions Recorded Cyclobenzaprine [Flexeril 10 MG 10 mg PO BID PRN 04/29/17 (*)] Gentamicin 0.3% [Gentak 0.3% Opht 1 drop DAILY 04/29/17 Drops (RX)] LORazepam [Ativan (*)] 0.5 mg PO Q12 PRN 04/29/17 Naproxen Sodium [Aleve 220 MG (*)] 220 mg PO PRN PRN 04/29/17 Nystatin Susp [Mycostatin Oral 5 ml PO QID 04/29/17 Liquid] Sertraline HCl [Zoloft 100mg (*)] 200 mg PO DAILY 04/29/17 levETIRAcetam [Keppra 500 mg (*)] 750 mg PO BID 04/29/17 oxyCODONE IR [Oxycodone Ir (*)] 5 mg PO Q12 PRN 04/29/17 traZODone [traZODONE 50MG (*)] 25 mg PO HS 04/29/17 Cephalexin [Keflex] 500 mg PO QID 5 Days 05/04/17 Ondansetron Odt [Zofran Odt] 4 mg PO Q4PRN #10 tab 05/04/17 oxyCODONE HCL [Oxycodone HCl] 5 mg PO Q6 PRN #7 tablet 05/04/17 Medical Decision Making Differential Diagnosis: For nosebleed including but not limited to coagulopathy, anterior epistaxis, posterior epistaxis, arterial bleeding. - Data Points Medications Given: Discontinued Medications Cephalexin HCl (Keflex) 500 mg PO EDNOW ONE PRN Reason: Protocol Stop: 05/04/17 18:03 Last Admin: 05/04/17 18:19 Dose: 500 mg Diazepam (Valium Injection) 5 mg IVP EDNOW ONE Stop: 05/04/17 15:31 Last Admin: 05/04/17 15:33 Dose: 5 mg Fentanyl (Sublimaze) 50 mcg IVP EDNOW ONE Stop: 05/04/17 15:40 Last Admin: 05/04/17 15:41 Dose: 50 mcg Fentanyl (Sublimaze) 100 mcg IVP EDNOW ONE Stop: 05/04/17 16:47 Last Admin: 05/04/17 16:50 Dose: 100 mcg Hydromorphone HCl (Dilaudid) 0.5 mg IVP EDNOW ONE Stop: 05/04/17 18:03 Last Admin: 05/04/17 18:13 Dose: 0.5 mg Sodium Chloride (Ns) 1,000 mls @ 0 mls/hr IV ONCE ONE PRN Reason: Wide Open Stop: 05/04/17 15:28 Last Admin: 05/04/17 15:28 Dose: 1,000 mls Ketamine HCl (Ketamine) 20 mg IVP EDNOW ONE Stop: 05/04/17 16:47 Last Admin: 05/04/17 16:55 Dose: 20 mg Ketamine HCl (Ketamine) 20 mg IVP EDNOW ONE Stop: 05/04/17 17:13 Last Admin: 05/04/17 17:12 Dose: 20 mg Ondansetron HCl (Zofran) 4 mg IVP EDNOW ONE Stop: 05/04/17 15:28 Last Admin: 05/04/17 15:29 Dose: 4 mg Ondansetron HCl (Zofran) 4 mg IVP EDNOW ONE Stop: 05/04/17 16:47 Last Admin: 05/04/17 16:55 Dose: 4 mg Oxycodone HCl (Oxycodone Ir) 5 mg PO EDNOW ONE Stop: 05/04/17 18:03 Last Admin: 05/04/17 18:17 Dose: 5 mg Oxymetazoline HCl (Afrin Nasal [place]) 2 sprays EACHNARE EDNOW ONE Stop: 05/04/17 15:03 Last Admin: 05/04/17 16:12 Dose: Not Given Departure - Departure Disposition: Home, Routine, Self-Care Clinical Impression: Epistaxis Condition: Good Instructions: Nosebleed (ED) Referrals: Mariela Cleveland MD [Medical Doctor] - 05/07/17 Prescriptions: Cephalexin [Keflex] 500 mg PO QID 5 Days Ondansetron Odt [Zofran Odt] 4 mg PO Q4PRN #10 tab oxyCODONE HCL [Oxycodone HCl] 5 mg PO Q6 PRN #7 tablet PRN Reason: nasal/facial pain
[2017-05-04] MEDS ORDERED: oxyCODONE IR 5 MG TAB PO ONE (18:02)
[2017-05-04] MEDS ORDERED: CEPHALEXIN 500 MG CAP PO ONE (18:02)
[2017-05-04] MEDS ORDERED: HYDROmorphONE/DILAUDID 1 MG/ML SYR IVP ONE (18:02)
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
[2017-05-04 18:51] VITALS: BP 102/59; PULSE 99; RESP 18; TEMP 98.4; O2SAT 96
== END 2017-05-04 18:50 | disposition home or self-care (01) ==
LOC: CED 14:51
PROC: 2Y41X5Z Packing of Nasal Region using Packing Material (ICD-10-PCS; principal; 2017-05-04)
DX: R04.0 Epistaxis (principal); F17.200 Nicotine dependence, unspecified, uncomplicated; Z91.040 Latex allergy status
CPT/HCPCS: 30903; 96361; 96374; 96375; 96376; 99284; J1170; J2405; J3010; 82947-QW

== ENCOUNTER 2017-05-06 06:35 | Inpatient (IN) | payer OTHER ==
[2017-05-06] MEDS ORDERED: NS 1,000 ML IV ONE ×2 (06:49→07:19)
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
[2017-05-06] MEDS ORDERED: fentaNYL 100 MCG/2 ML INJ IVP ONE (07:19)
[2017-05-06] MEDS ORDERED: ONDANSETRON 4 MG/2 ML VIAL IVP ONE ×3 (07:19→15:00)
[2017-05-06] MEDS ORDERED: KETAMINE 100 MG/10 ML SYR IVP ONE (07:20)
[2017-05-06] MEDS ORDERED: ONDANSETRON DISINTEGRATING 4 MG TAB ONE (07:57)
[2017-05-06] MEDS ORDERED: ONDANSETRON DISINTEGRATING 4 MG TAB PO ONE (07:58)
[2017-05-06] MEDS ORDERED: ALTEPLASE 2 MG VIAL IVP PRN (08:21)
[2017-05-06] MEDS ORDERED: HYDROmorphONE/DILAUDID 1 MG/ML SYR IM ONE (08:30)
[2017-05-06] MEDS ORDERED: LORazepam 1 MG TAB PO ONE (08:32)
[2017-05-06] MEDS ORDERED: KETAMINE 100 MG/10 ML SYR ONE (09:59)
[2017-05-06] MEDS ORDERED: ONDANSETRON 4 MG/2 ML VIAL ONE (10:00)
[2017-05-06] MEDS ORDERED: fentaNYL 100 MCG/2 ML INJ ONE (10:00)
[2017-05-06 10:22] LABS: % IMMATURE GRANULYOCYTES 0.3 % (0.0-1.1); ABSOLUTE IMMATURE GRANULOCYTES 0.03 10^3/uL (0.00-0.10); ADD DIFF? NO; ADD MORPH? NO; ADD SCAN? NO; ATYPICAL LYMPHOCYTE FLAG 10 (0-99); FRAGMENT RBC FLAG 0 (0-99); HEMATOCRIT 39.9 % (38.0-47.0); LEFT SHIFT FLG 0 (0-99); LIPEMIA HEMOLYSIS FLAG 80 (0-99); MEAN CELL HEMOGLOBIN CONCENTR. 32.6 g/dL (32.4-36.7); MEAN PLATELET VOLUME 9.5 fL (8.7-11.7); PLATELET CLUMPS FLAG 10 (0-99); PLATELET COUNT 286 10^3/uL (150-400); RED BLOOD CELL COUNT 4.64 10^6/uL (4.18-5.33); RED CELL DISTRIBUTION WIDTH 12.8 % (11.5-15.2)
[2017-05-06 10:36] LABS: INR 1.06 (0.83-1.16); PROTIME(PATIENT) 13.7 SEC (12.0-15.0)
[2017-05-06 10:37] LABS: APTT 27.3 SEC (23.0-38.0)
[2017-05-06 10:44] LABS: ANION GAP 13 mEq/L (8-16); CALCIUM 9.5 mg/dL (8.5-10.4); CARBON DIOXIDE 18 mEq/l (22-31); CHLORIDE 111 mEq/L (97-110); CREATININE 0.7 mg/dL (0.6-1.0); GLOMERULAR FILTRATION RATE > 60; GLUCOSE 90 mg/dL (70-100); POTASSIUM 4.1 mEq/L (3.5-5.2); SODIUM 142 mEq/L (134-144)
[2017-05-06] MEDS ORDERED: HYDROmorphONE/DILAUDID 1 MG/ML SYR IVP ONE ×2 (11:07→15:00)
[2017-05-06] MEDS ORDERED: LORazepam 2 MG/ML INJ IVP PRN ×2 (11:07→15:28)
[2017-05-06] MEDS ORDERED: PANTOPRAZOLE SODIUM 80 MG in NS 100 ML IV ONE (11:07)
[2017-05-06] MEDS: HYDROmorphONE/DILAUDID 1 MG/ML SYR IVP PRN ×2 (13:06→20:07)
[2017-05-06] MEDS ORDERED: ONDANSETRON DISINTEGRATING 4 MG TAB PO PRN (15:28)
[2017-05-06] MEDS ORDERED: ACETAMINOPHEN 325 MG TAB PO PRN (15:28)
[2017-05-06] MEDS ORDERED: CYCLOBENZAPRINE 10 MG TAB PO PRN (15:29)
[2017-05-06] MEDS ORDERED: ALBUTEROL 3 ML DEYVIAL IH PRN (15:39)
[2017-05-06] MEDS ORDERED: NON-FORMULARY NEW DRUG (Nystatin Susp 5 ML) PO SCH (16:00)
[2017-05-06] MEDS: ALBUTEROL 3 ML DEYVIAL IH SCH ×2 (16:17→21:00)
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
[2017-05-06] MEDS: oxyCODONE IR 5 MG TAB PO PRN (17:40)
[2017-05-06] MEDS: CEPHALEXIN 500 MG CAP PO SCH ×2 (17:40→21:26)
[2017-05-06] MEDS ORDERED: METOCLOPRAMIDE 10 MG/2 ML VIAL IVP SCH (18:00)
[2017-05-06] MEDS: levETIRAcetam 500 MG TAB PO SCH (20:02)
[2017-05-06] MEDS: traZODone 50 MG TAB PO SCH (20:02)
[2017-05-06] MEDS: NYSTATIN SUSP 500000 UNIT/5 ML UDCUP PO SCH (21:27)
--- NOTE | 2017-05-06 21:36 | HOSPPROG ---
Hospitalist Progress Note Assessment/Plan: Called to see patient for stroke alert. Apparently she had been given Reglan just a few minutes before. She had difficulty speaking with garbled speech had slight left upper extremity weakness. After several minutes actually these symptoms improved. I believe this was a reaction of the Reglan. We discontinued the medication I have given her Benadryl. She quickly improved. Objective: Vital Signs Temp Pulse Resp BP Pulse Ox 36.9 C 102 H 20 110/65 94 05/06/17 19:38 05/06/17 19:38 05/06/17 19:38 05/06/17 19:38 05/06/17 19:38 05/05/17 05/06/17 05/07/17 05:59 05:59 05:59 Intake Total 1999 Balance 1999 PT 13.7 SEC (12.0-15.0) 05/06/17 10:15 INR 1.06 (0.83-1.16) 05/06/17 10:15 ICD10 Worksheet Patient Problems: Problems Problem Status Onset Abdominal pain Acute Epistaxis, recurrent Acute Acute posterior epistaxis Acute Hematemesis Acute History of facial fracture Acute
[2017-05-07] MEDS: HYDROmorphONE/DILAUDID 1 MG/ML SYR IVP PRN ×9 (00:18→22:37)
[2017-05-07] MEDS: CEPHALEXIN 500 MG CAP PO SCH ×4 (05:05→22:25)
[2017-05-07] MEDS: oxyCODONE IR 5 MG TAB PO PRN ×4 (05:06→23:09)
[2017-05-07] MEDS: ONDANSETRON 4 MG/2 ML VIAL IVP PRN ×5 (05:12→22:25)
[2017-05-07 05:46] LABS: % IMMATURE GRANULYOCYTES 0.1 % (0.0-1.1); ABSOLUTE IMMATURE GRANULOCYTES 0.01 10^3/uL (0.00-0.10); ADD DIFF? NO; ADD MORPH? NO; ADD SCAN? NO; ATYPICAL LYMPHOCYTE FLAG 0 (0-99); FRAGMENT RBC FLAG 0 (0-99); HEMATOCRIT 36.8 % (38.0-47.0); HEMOGLOBIN 11.6 g/dL (12.6-16.3); LEFT SHIFT FLG 0 (0-99); LIPEMIA HEMOLYSIS FLAG 80 (0-99); MEAN CELL HEMOGLOBIN CONCENTR. 31.5 g/dL (32.4-36.7); MEAN CELL VOLUME 88.7 fL (81.5-99.8); MEAN PLATELET VOLUME 9.8 fL (8.7-11.7); PLATELET CLUMPS FLAG 0 (0-99); PLATELET COUNT 255 10^3/uL (150-400); RED BLOOD CELL COUNT 4.15 10^6/uL (4.18-5.33); RED CELL DISTRIBUTION WIDTH 12.9 % (11.5-15.2)
[2017-05-07] MEDS: NYSTATIN SUSP 500000 UNIT/5 ML UDCUP PO SCH ×4 (06:04→22:25)
[2017-05-07 06:05] LABS: ALANINE AMINOTRANSFERASE 25 IU/L (9-52); ALBUMIN 3.1 g/dL (3.5-5.0); ALKALINE PHOSPHATASE 65 IU/L (38-126); ANION GAP 10 mEq/L (8-16); ASPARTATE AMINOTRANSFERASE 16 IU/L (14-46); BILIRUBIN,TOTAL 0.6 mg/dL (0.1-1.4); CARBON DIOXIDE 23 mEq/l (22-31); CHLORIDE 110 mEq/L (97-110); CREATININE 0.8 mg/dL (0.6-1.0); GLOMERULAR FILTRATION RATE > 60; GLUCOSE 85 mg/dL (70-100); POTASSIUM 4.2 mEq/L (3.5-5.2); SODIUM 143 mEq/L (134-144)
[2017-05-07] MEDS: levETIRAcetam 500 MG TAB PO SCH ×2 (09:15→22:26)
[2017-05-07] MEDS: SERTRALINE HCL 100 MG TAB PO SCH (09:17)
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
[2017-05-07] MEDS: PANTOPRAZOLE SODIUM 40 MG in NS 100 ML IV SCH ×2 (09:52→22:24)
[2017-05-07] MEDS: ALBUTEROL 3 ML DEYVIAL IH SCH (10:30)
[2017-05-07] MEDS ORDERED: ALBUTEROL 3 ML DEYVIAL IH PRN (10:51)
[2017-05-07] MEDS: LORazepam 2 MG/ML INJ IVP PRN (11:55)
[2017-05-07] MEDS ORDERED: NYSTATIN SUSP 500000 UNIT/5 ML UDCUP PO SCH (12:00)
[2017-05-07] MEDS: SODIUM CL NASAL 45 ML BTL EACHNARE PRN (16:31)
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
[2017-05-07 18:31] LABS: HEMATOCRIT 36.9 % (38.0-47.0); HEMOGLOBIN 11.9 g/dL (12.6-16.3)
[2017-05-07] MEDS: SUCRALFATE 1 GM TAB PO SCH (22:25)
[2017-05-07] MEDS: traZODone 50 MG TAB PO SCH (22:26)
[2017-05-08] MEDS: HYDROmorphONE/DILAUDID 1 MG/ML SYR IVP PRN ×12 (00:01→22:56)
[2017-05-08] MEDS: ONDANSETRON 4 MG/2 ML VIAL IVP PRN ×6 (01:48→22:56)
[2017-05-08] MEDS: oxyCODONE IR 5 MG TAB PO PRN ×3 (03:16→15:35)
[2017-05-08] MEDS: LORazepam 2 MG/ML INJ IVP PRN ×3 (03:17→23:55)
[2017-05-08] MEDS ORDERED: LIDOCAINE 4% 15 GM CREAM TP PRN (03:57)
[2017-05-08] MEDS: CEPHALEXIN 500 MG CAP PO SCH ×4 (06:08→20:43)
[2017-05-08] MEDS: NYSTATIN SUSP 500000 UNIT/5 ML UDCUP PO SCH ×4 (06:08→20:44)
[2017-05-08 06:31] LABS: % IMMATURE GRANULYOCYTES 0.2 % (0.0-1.1); ABSOLUTE IMMATURE GRANULOCYTES 0.01 10^3/uL (0.00-0.10); ADD DIFF? NO; ADD MORPH? NO; ADD SCAN? NO; ATYPICAL LYMPHOCYTE FLAG 10 (0-99); FRAGMENT RBC FLAG 0 (0-99); HEMATOCRIT 32.9 % (38.0-47.0); HEMOGLOBIN 10.5 g/dL (12.6-16.3); LEFT SHIFT FLG 0 (0-99); LIPEMIA HEMOLYSIS FLAG 80 (0-99); MEAN CELL HEMOGLOBIN 28.5 pg (27.9-34.1); MEAN CELL HEMOGLOBIN CONCENTR. 31.9 g/dL (32.4-36.7); MEAN CELL VOLUME 89.4 fL (81.5-99.8); MEAN PLATELET VOLUME 9.4 fL (8.7-11.7); PLATELET CLUMPS FLAG 0 (0-99); PLATELET COUNT 220 10^3/uL (150-400); RED BLOOD CELL COUNT 3.68 10^6/uL (4.18-5.33); RED CELL DISTRIBUTION WIDTH 12.7 % (11.5-15.2)
[2017-05-08 06:59] LABS: ALANINE AMINOTRANSFERASE 23 IU/L (9-52); ALBUMIN 3.1 g/dL (3.5-5.0); ALKALINE PHOSPHATASE 58 IU/L (38-126); ANION GAP 8 mEq/L (8-16); ASPARTATE AMINOTRANSFERASE 15 IU/L (14-46); BILIRUBIN,TOTAL 0.4 mg/dL (0.1-1.4); CALCIUM 8.9 mg/dL (8.5-10.4); CARBON DIOXIDE 24 mEq/l (22-31); CHLORIDE 108 mEq/L (97-110); CREATININE 0.9 mg/dL (0.6-1.0); GLOMERULAR FILTRATION RATE > 60; GLUCOSE 92 mg/dL (70-100); POTASSIUM 4.1 mEq/L (3.5-5.2); SODIUM 140 mEq/L (134-144); TOTAL PROTEIN 5.8 g/dL (6.3-8.2)
[2017-05-08] MEDS: levETIRAcetam 500 MG TAB PO SCH ×2 (08:09→20:43)
[2017-05-08] MEDS: SERTRALINE HCL 100 MG TAB PO SCH (08:09)
[2017-05-08] MEDS: SUCRALFATE 1 GM TAB PO SCH ×4 (08:09→20:44)
[2017-05-08] MEDS: PANTOPRAZOLE SODIUM 40 MG in NS 100 ML IV SCH ×2 (08:21→20:50)
[2017-05-08] MEDS: SODIUM CL NASAL 45 ML BTL EACHNARE PRN ×5 (08:25→17:02)
[2017-05-08] MEDS ORDERED: SODIUM CL NASAL 45 ML BTL EACHNARE PRN (08:56)
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
[2017-05-08] MEDS: OXYMETAZOLINE 30 ML NASAL SPRAY EACHNARE PRN ×2 (10:15→15:16)
--- NOTE | 2017-05-08 17:28 | SOAPPROG ---
SOAP Progress Note Assessment/Plan: Assessment: Pt seen this afternoon after having R epistaxis. R side is very excoriated and actually has a few linear cuts as well as an abrasion 5 mm in soft portion of septum. No other bleeding. Discussed with her to not pick at nose, do saline and vaseline, otherwise don't touch it. Records reviewed, looks like had B nasal bone fx and possible septal fx. Dont' have op report. Rec check other sources of bleeding. Call if have issues. Carlos Alberto f/u with Dr. Monsivais as outpatient. Plan: 05/07/17 17:26 05/07/17 17:30 05/08/17 17:25 Subjective: Pt c/o bleeding x 2. Did afrin, held pressure and stopped. C/o severe abdominal pain Objective: AFVSS RA Anterior rhinoscopy: R linear excoriations along skin of medial sill/septum and 5 mm cut/abrasion more posterior on septum mild crusting B, no bleeding OP clear of blood Vital Signs Temp Pulse Resp BP Pulse Ox 37.2 C 94 16 131/82 H 95 05/08/17 15:44 05/08/17 15:44 05/08/17 15:44 05/08/17 15:44 05/08/17 15:44 Laboratory Results 05/08/17 06:00 05/08/17 06:00 05/07/17 05/08/17 05/09/17 05:59 05:59 05:59 Intake Total 1999 1310 550 Output Total 600 102 Balance 1999 710 448 PT 13.7 SEC (12.0-15.0) 05/06/17 10:15 INR 1.06 (0.83-1.16) 05/06/17 10:15 ICD10 Worksheet Patient Problems: Problems Problem Status Onset Abdominal pain Acute Epistaxis, recurrent Acute Acute posterior epistaxis Acute Hematemesis Acute History of facial fracture Acute
[2017-05-08] MEDS: DIAZEPAM 5 MG TAB PO PRN ×2 (18:08)
[2017-05-08] MEDS: traZODone 50 MG TAB PO SCH (20:44)
[2017-05-09] MEDS: HYDROmorphONE/DILAUDID 1 MG/ML SYR IVP PRN ×4 (04:18→11:24)
[2017-05-09 05:00] LABS: % IMMATURE GRANULYOCYTES 0.3 % (0.0-1.1); ABSOLUTE IMMATURE GRANULOCYTES 0.02 10^3/uL (0.00-0.10); ADD DIFF? NO; ADD MORPH? NO; ADD SCAN? NO; ATYPICAL LYMPHOCYTE FLAG 10 (0-99); FRAGMENT RBC FLAG 0 (0-99); HEMATOCRIT 34.8 % (38.0-47.0); HEMOGLOBIN 10.8 g/dL (12.6-16.3); LEFT SHIFT FLG 0 (0-99); LIPEMIA HEMOLYSIS FLAG 80 (0-99); MEAN CELL HEMOGLOBIN 28.1 pg (27.9-34.1); MEAN CELL VOLUME 90.4 fL (81.5-99.8); MEAN PLATELET VOLUME 9.3 fL (8.7-11.7); PLATELET CLUMPS FLAG 10 (0-99); PLATELET COUNT 249 10^3/uL (150-400); RED BLOOD CELL COUNT 3.85 10^6/uL (4.18-5.33); RED CELL DISTRIBUTION WIDTH 12.7 % (11.5-15.2)
[2017-05-09 05:19] LABS: ALANINE AMINOTRANSFERASE 25 IU/L (9-52); ALBUMIN 3.3 g/dL (3.5-5.0); ALKALINE PHOSPHATASE 61 IU/L (38-126); ANION GAP 10 mEq/L (8-16); ASPARTATE AMINOTRANSFERASE 16 IU/L (14-46); BILIRUBIN,TOTAL 0.3 mg/dL (0.1-1.4); CALCIUM 9.2 mg/dL (8.5-10.4); CARBON DIOXIDE 26 mEq/l (22-31); CHLORIDE 106 mEq/L (97-110); CREATININE 0.9 mg/dL (0.6-1.0); GLOMERULAR FILTRATION RATE > 60; GLUCOSE 91 mg/dL (70-100); POTASSIUM 4.3 mEq/L (3.5-5.2); SODIUM 142 mEq/L (134-144); TOTAL PROTEIN 6.1 g/dL (6.3-8.2)
[2017-05-09] MEDS: CEPHALEXIN 500 MG CAP PO SCH ×2 (05:27→11:26)
[2017-05-09] MEDS: NYSTATIN SUSP 500000 UNIT/5 ML UDCUP PO SCH ×2 (05:28→11:26)
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
[2017-05-09] MEDS: LORazepam 2 MG/ML INJ IVP PRN (06:26)
[2017-05-09] MEDS: SERTRALINE HCL 100 MG TAB PO SCH (08:26)
[2017-05-09] MEDS: levETIRAcetam 500 MG TAB PO SCH (08:26)
[2017-05-09] MEDS: SUCRALFATE 1 GM TAB PO SCH ×2 (08:26→11:26)
[2017-05-09] MEDS: DIAZEPAM 5 MG TAB PO PRN (08:26)
[2017-05-09] MEDS: PANTOPRAZOLE SODIUM 40 MG in NS 100 ML IV SCH (08:27)
[2017-05-09] MEDS: ONDANSETRON 4 MG/2 ML VIAL IVP PRN (09:00)
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
[2017-05-09] MEDS ORDERED: LR 1,000 ML IV ONE (09:49)
[2017-05-09] MEDS ORDERED: MIDAZOLAM 2 MG/2 ML VIAL ONE (09:53)
[2017-05-09] MEDS ORDERED: MIDAZOLAM 2 MG/2 ML VIAL IVP ONE (09:55)
--- NOTE | 2017-05-09 09:57 | PDANEPAE ---
ANE History of Present Illness hematemesis ANE Past Medical History - Cardiovascular History Hx Hypertension: No Hx Arrhythmias: No Hx Chest Pain: No Hx Coronary Artery / Peripheral Vascular Disease: No Hx CHF / Valvular Disease: No Hx Palpitations: No - Pulmonary History Hx COPD: No Hx Asthma/Reactive Airway Disease: Yes Hx Recent Upper Respiratory Infection: No Hx Oxygen in Use at Home: No Hx Sleep Apnea: No Sleep Apnea Screening Result - Last Documented: Negative - Neurologic History Hx Cerebrovascular Accident: No Hx Seizures: Yes - Endocrine History Hx Diabetes: No - Renal History Hx Renal Disorders: Yes Renal History Comment: on HD til 2013 ANE Patient History - Allergies Allergies/Adverse Reactions: ibuprofen Allergy (Severe, Verified 05/06/17 11:50) Anaphylaxis tramadol Allergy (Severe, Verified 05/06/17 11:50) Anaphylaxis fosphenytoin Allergy (Verified 05/06/17 11:50) Anaphylaxis haloperidol [From Haldol] Allergy (Verified 05/06/17 11:50) Other-Enter Comments latex Allergy (Verified 05/06/17 11:50) Rash metoclopramide [From Reglan] Allergy (Verified 05/06/17 18:08) Other-Enter Comments Penicillins Allergy (Verified 05/06/17 11:50) Anaphylaxis - Home Medications Home Medications: Cyclobenzaprine [Flexeril 10 MG (*)] 5 - 10 mg PO BID PRN 04/29/17 [Last Taken 05/05/17] Gentamicin 0.3% [Gentak 0.3% Opht Drops (RX)] 1 drop EACHEYE DAILY 04/29/17 [ Last Taken 05/06/17] LORazepam [Ativan (*)] 0.5 mg PO Q12 PRN 04/29/17 [Last Taken Unknown] Nystatin Susp [Mycostatin Oral Liquid] 5 ml PO QID 04/29/17 [Last Taken 05/06/17 ] Sertraline HCl [Zoloft 100mg (*)] 200 mg PO DAILY 04/29/17 [Last Taken 05/05/17] levETIRAcetam [Keppra 500 mg (*)] 750 mg PO BID 04/29/17 [Last Taken 05/06/17 03 :00] traZODone [traZODONE 50MG (*)] 25 - 50 mg PO HS 04/29/17 [Last Taken Unknown] Diazepam [Valium 5 MG (*)] 5 mg PO TID PRN 05/06/17 [Last Taken Unknown] oxyCODONE HCL [Oxycodone HCl] 5 - 10 mg PO Q4H PRN 05/06/17 [Last Taken Unknown] - NPO status NPO Since - Liquids (Date): 05/09/17 NPO Since - Liquids (Time): 09:10 NPO Since - Solids (Date): 05/09/17 NPO Since - Solids (Time): 00:01 - Smoking Hx Smoking Status: Light smoker ANE Labs/Vital Signs - Labs Result Diagrams: 05/09/17 04:45 05/09/17 04:45 - Vital Signs Blood Pressure: 104/73 Heart Rate: 74 Respiratory Rate: 16 O2 Sat (%): 97 Height: 175.26 cm Weight: 107.048 kg ANE Physical Exam - Airway Neck exam: FROM Mallampati Score: Class 2 Mouth exam: normal dental/mouth exam - Pulmonary Pulmonary: no respiratory distress - Cardiovascular Cardiovascular: regular rate and rhythym - ASA Status ASA Status: II ANE Anesthesia Plan Anesthesia Plan: MAC
[2017-05-09] MEDS ORDERED: PROPOFOL 200 MG/20 ML VIAL ONE ×2 (10:00)
[2017-05-09] MEDS ORDERED: NALOXONE HCL 0.4 MG/ML INJ IVP PRN (10:16)
--- NOTE | 2017-05-09 10:19 | POSTOPPROG ---
Post Op Note Date of Operation: 05/09/17 Surgeon: Jose G Hernandez Capsule Machine Operator: None Anesthesiologist: Dr Weller Anesthesia: Other (Specify) (MAC.) Pre-op Diagnosis: 1. Epigastric pain. 2. Blood in stool with anemia. Post-op Diagnosis: 1.Blood staining of tongue and oropharnyx only 2.Food in stomach o/w NL EGD Indication: Epigastric pain, blood in stool and post-hemorrhagic anemia Procedure: EGD Findings: Fresh blood staining of tongue and oropharnyx, normal EGD, retained food. Inf/Abcess present in the surg proc area at time of surgery?: No EBL: Minimal Total fluids administered: None Complications: None
[2017-05-09] MEDS: oxyCODONE IR 5 MG TAB PO PRN ×2 (12:40→17:07)
--- NOTE | 2017-05-09 13:36 | GPN ---
[f rep st] PROCEDURE NOTE DATE OF PROCEDURE: 05/09/2017 PROCEDURE PERFORMED: Esophagogastroduodenoscopy. PREOPERATIVE DIAGNOSIS: Epigastric pain with blood in stool and posthemorrhagic anemia with known n asopharyngeal bleeding source in the past. POSTOPERATIVE DIAGNOSES: 1. Epigastric pain with blood in stool and posthemorrhagic anemia with known nasopharyngeal bleedin g source in the past. 2. Blood staining of the tongue and the oropharyngeal area consistent with a nasal passage bleed. 3. Normal esophagus. 4. Retained food in the stomach suggestive of patient eating prior to 6 hours from procedure, albei t 50% of gastric lumen visualized and normal. 5. Normal duodenal bulb and 1st portion of the sweep. CLINICAL HISTORY/INDICATION: The patient is a 36-year-old female, who has had a chronic epistaxis. She was admitted to the hospital with a drop in her hemoglobin and some epigastric abdominal pain. I was asked to see the patient for EGD to rule out a peptic ulcer as a source of her anemia and epi gastric discomfort. PERMIT: Patient was informed of the indication for procedure. Risks and benefits of conscious mini tion and procedure were outlined by me. Informed consent was obtained. PREOPERATIVE MEDICATIONS: Monitored anesthesia care per Dr. Perez. PROCEDURE FINDINGS: GIF-180 video endoscope was inserted into the oropharynx. The tongue and oroph aryngeal area was visualized. There was fresh staining of bright red blood in this area with some m inor erosions of the tongue. The scope was then passed into the esophagus. The esophageal mucosa a ppeared normal. Scope was advanced into the stomach. There was a fair amount of retained food in t he stomach suggestive of the patient eating during the 6-hour preoperative window. The mucosa of th e 50% of the gastric lumen visualized was normal. The pyloric channel, duodenal bulb, and sweep wer e normal to the junction between the 1st and 2nd portion of the duodenum. Scope was slowly withdraw n and removed. The patient did not exhibit any aspiration during this procedure. The patient was s ent to recovery room in satisfactory condition. IMPRESSION: 1. Anemia secondary to oropharyngeal/nasal bleed. 2. Suboptimal visualization of stomach and duodenum, albeit mucosa appeared normal. RECOMMENDATIONS: 1. Further evaluation of nasal passages and oropharyngeal mucosa per ENT. 2. No further GI evaluation warranted at this time. /[id number]/MODL
[2017-05-09] MEDS ORDERED: hydrOXYzine HCL 25 MG TAB PO PRN (14:30)
[2017-05-09] MEDS ORDERED: diphenhydrAMINE 25 MG CAP PO PRN (15:36)
[2017-05-09 16:20] VITALS: BP 119/89; PULSE 88; RESP 18; TEMP 97.5; O2SAT 93
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
== END 2017-05-09 17:35 | disposition home or self-care (01) | DRG 151 ==
LOC: EEVIPCON 11:16 → F3E 12:24
PROVIDERS: ADMIT Internal Medicine Pulmonary Disease; ATTEND Hospitalist
PROC: 02HV33Z Insertion of Infusion Device into Superior Vena Cava, Percutaneous Approach (ICD-10-PCS; 2017-05-06)
PROC: 0DJ08ZZ Inspection of Upper Intestinal Tract, Via Natural or Artificial Opening Endoscopic (ICD-10-PCS; principal; 2017-05-09 10:00)
DX: R04.0 Epistaxis (principal); R10.13 Epigastric pain; K92.1 Melena; K92.0 Hematemesis; D62 Acute posthemorrhagic anemia; R26.81 Unsteadiness on feet; F41.9 Anxiety disorder, unspecified; F32.9 Major depressive disorder, single episode, unspecified; F43.10 Post-traumatic stress disorder, unspecified; J45.909 Unspecified asthma, uncomplicated; G40.909 Epilepsy, unspecified, not intractable, without status epilepticus; S01.81XA Laceration without foreign body of other part of head, initial encounter; W18.30XA Fall on same level, unspecified, initial encounter; Y92.231 Patient bathroom in hospital as the place of occurrence of the external cause; S01.552A Open bite of oral cavity, initial encounter; X83.8XXA Intentional self-harm by other specified means, initial encounter; Z76.5 Malingerer [conscious simulation]; Z87.820 Personal history of traumatic brain injury; Z86.73 Personal history of transient ischemic attack (TIA), and cerebral infarction without residual deficits; Z86.718 Personal history of other venous thrombosis and embolism
CPT/HCPCS: 96374; C1751; J1170; J1200; J2060; J2250; J2405; J2704; J2765; J3010